=== PATIENT | female | born 1970 | race Two or more races ===

== ENCOUNTER 2020-03-24 08:32 | Outpatient (CLI) | payer OTHER ==
[~2020-03-24 08:32] MED LIST: AVAPRO300 MG PO; CRESTOR10 MG PO; CYTOMEL5 MCG PO; NORVASC5 MG PO; SYNTHROID125 MCG PO; [UNRECOGNIZED DRUG - OTHER] PO
== END 2020-03-24 08:43 | disposition home or self-care (01) ==
LOC: RX STUDY 08:32
PROVIDERS: ATTEND Internal Medicine Gastroenterology
DX: R13.19 Other dysphagia (principal); R10.13 Epigastric pain